=== PATIENT | female | born 1970 | race Caucasian/White ===

== ENCOUNTER 2020-08-04 15:32 | Emergency (ER) | payer OTHER, SELFPAY ==
--- NOTE | ~2020-08-04 | XR_ITS ---
EXAMINATION: XR foot LT min 3V DATE: 08/04/2020 15:54 INDICATION: Left foot injury and pain. TECHNIQUE: 4 views of left foot were obtained. COMPARISON: None. FINDINGS: Bone alignment is normal. There are changes of bunionectomy. No acute fracture. There is mi ld osteoarthritis of first metatarsophalangeal joint and some of the interphalangeal joints. IMPRESSION: 1. Mild polyarticular osteoarthritis. Reviewed, dictated and finalized at location A. [facility]
--- NOTE | 2020-08-04 15:39 | ED.LOWEXIN ---
HPI - Extremity Injury (Lower) General Chief Complaint: Extremity Injury, Lower Stated Complaint: lt foot injury Source: patient and RN notes reviewed Mode of arrival: ambulatory Limitations: no limitations History of Present Illness HPI Narrative: 42-year-old female presents with concern for left foot pain. Reports this morning at the gym she felt she stepped on it wrong causing pain. Reports she went through her day, got a pedicure, pain persisted. She denies any known trauma, direct injury. Denies swelling, bruising. Reports dorsal foot pain with flexion of the foot and movement of the toes. MD complaint: foot injury Injury: Left: foot Related Data Home Medications Medication Instructions Recorded Confirmed estradiol 1 mg tablet 1 mg PO DAILY 08/19/19 05/12/20 estradiol-norethindrone acet 0.5 1 tablet PO DAILY 08/19/19 05/12/20 mg-0.1 mg tablet abacavir 600 mg-dolutegravir 50 1 tablet PO DAILY 05/12/20 mg-lamivudine 300 mg tablet Allergies Allergy/AdvReac Type Severity Reaction Status Date / Time Penicillins Allergy Unknown Verified 08/23/19 17:20 Review of Systems Review of Systems: Narrative: CONSTITUTIONAL: Denies malaise, chills, sweats, or fever. SKIN: Denies laceration, abrasions, redness, swelling, warmth MUSCULOSKELETAL: Reports left foot pain NEUROLOGIC: Denies numbness, weakness All systems reviewed & are unremarkable except as noted in HPI and below PMFSH Past Medical History Medical History (Updated 08/04/20 @ 16:16 by Andie Latif NP) HIV (human immunodeficiency virus infection) Insomnia Migraine Surgical History Surgical History (Updated 05/12/20 @ 11:08 by Nury Murphy CMA) History of nasal surgery Family History Family History (System 08/23/19 @ 17:20 by Risa Chester) Father Family history of prostate cancer Cerebrovascular accident Malignant neoplasm of prostate Grandparent Malignant neoplasm of prostate Cerebrovascular accident Grandparent Rheumatic fever Heart attack Grandparent Malignant neoplasm of prostate Heart attack Sibling Malignant neoplasm of prostate Sibling Heart attack Father Cerebrovascular accident Malignant neoplasm of prostate Grandparent Cerebrovascular accident Malignant neoplasm of prostate Family history of rheumatic fever Sibling Malignant neoplasm of prostate Social History Social History (System 08/23/19 @ 17:20 by Risa Chester) Smoking status: Never smoker Alcohol intake: never Comments At time of signature, agree with nursing past medical, surgical, social and family history. There is no relevant family history pertinent to the presenting complaint Exam Narrative: Exam Narrative: GENERAL: Well-appearing, well-nourished, and in no acute distress. HEAD: Normocephalic, atraumatic. EYES: PERRLA, conjunctivae clear NECK: Supple. CHEST: Speaks in full sentences. No respiratory distress. HEART: Regular rate and rhythm. Normal and equal peripheral pulses. EXTREMITIES: Left foot and digits have normal strength and sensation, normal range of motion. No edema or ecchymosis. 5/5 strength with ankle and digit flexion and extension. Normal sensation with sensitivity to light touch and pain. Lateral tenderness. No open wounds, no skin tenting, no devitalized tissue or atrophy, no trophic changes, no obvious deformity, alignment normal, nearby joints and structures intact. Distal pulses palpable and equal bilaterally, skin warm, dry, pink. Capillary refill less than 3 seconds. SKIN: Warm, dry, no rash. NEURO: Alert and oriented x3. PSYCH: Normal mood and affect Course Course Emergency Course: Patient is aware of diagnosis, understands and agrees to treatment plan. Anticipatory guidance given. Patient agrees to follow-up as directed and is aware of reasons to seek care at the emergency department. Portions of this record may have been created with voice recognition software Vital Signs Vit
[2020-08-04 15:48] VITALS: BP 144/83; PULSE 93; RESP 16; TEMP 37.1; O2SAT 100
== END 2020-08-04 16:24 | disposition home or self-care (01) ==
PROVIDERS: Emergency Provider Nurse Practitioner; PCP Internal Medicine
DX: M79.672 Pain in left foot (principal); Z21 Asymptomatic human immunodeficiency virus [HIV] infection status
CPT/HCPCS: 73630; 99213; G0463

== ENCOUNTER 2022-02-22 00:22 | Day surgery (SDC) | payer OTHER, SELFPAY ==
[2022-02-13 14:34] VITALS: BMI 21.3
--- NOTE | 2022-02-21 13:14 | PM.HPGS ---
History of Present Illness History of Present Illness Consent: Risks, benefits, and alternatives have been discussed and questions answered. Patient agrees to proceed with procedure. Chief complaint: neoplasm screening Narrative: Ela Carrillo is a 52 year old female referred for colon cancer screening. Review of Systems Review of Systems: All systems reviewed & are unremarkable except as noted in HPI and below PMFSH Past Medical History Medical History HIV (human immunodeficiency virus infection) Insomnia Migraine Surgical History Surgical History History of nasal surgery Family History Family History Father Family history of prostate cancer Cerebrovascular accident Malignant neoplasm of prostate Grandparent Malignant neoplasm of prostate Cerebrovascular accident Grandparent Rheumatic fever Heart attack Grandparent Malignant neoplasm of prostate Heart attack Sibling Malignant neoplasm of prostate Sibling Heart attack Father Cerebrovascular accident Malignant neoplasm of prostate Grandparent Cerebrovascular accident Malignant neoplasm of prostate Family history of rheumatic fever Sibling Malignant neoplasm of prostate Social History Social History Smoking status: Never smoker Alcohol intake: never Substance use: never Substance use type: does not use Living arrangements: with family Spiritual care concerns: No Meds Home Medications and Allergies Home Medications Medication Instructions Recorded Confirmed Type estradiol 1 mg tablet 1 mg PO DAILY 08/19/19 02/22/22 History abacavir 600 mg-dolutegravir 50 1 tablet PO DAILY 05/12/20 02/22/22 History mg-lamivudine 300 mg tablet (Triumeq) zolpidem 5 mg tablet 5 mg PO .qhs #30 tabs 11/14/21 02/22/22 Rx norethindrone 1 mg-ethinyl 1 tablet PO DAILY 02/13/22 02/22/22 History estradiol 35 mcg tablet (Pirmella) rizatriptan 10 mg tablet See Rx Instructions .Route 02/21/22 02/22/22 Rx .COMPLEX #18 tabs Allergies Allergy/AdvReac Type Severity Reaction Status Date / Time Penicillins Allergy Mild Rash Verified 02/22/22 07:40 Exam Resp: Auscultation: clear to auscultation bilaterally Cardio: Rate: regular rate Rhythm: regular rhythm GI: GI Palp: Yes Soft to palpation and No Tenderness to palpation present (GI) Assessment and Plan Assessment and plan (1) Screening for colon cancer: Code(s): Z12.11 - Encounter for screening for malignant neoplasm of colon Status: Acute Assessment and Plan: Colonoscopy with possible biopsy or polypectomy or cautery or injection of substances.
--- NOTE | 2022-02-22 07:41 | SUR.PREOP ---
DR URENA DISCONTINUED U-PREG TEST AFTER SPEAKING WITH PT
[2022-02-22 07:42] VITALS: BP 116/82; PULSE 100; RESP 16; TEMP 36.6; O2SAT 99
[2022-02-22] MEDS: LACTATED RINGERS 1,000 ML 150 ML IV CONT (07:55)
--- NOTE | 2022-02-22 08:02 | WPDANESEPPF ---
Anes - Initial Pre Proc Eval Procedure: Operation Date: 02/22/22 08:30 Proposed Procedures p Screening Colonoscopy - Eliud Bardales MD Date/Time: 02/22/22 08:02 Surgeon: Eliud Bardales MD Pre Op Diagnosis: neoplasm screening Patient Data Age: 52 Gender: F Height: 1.63 m Weight: 52.3 kg Last Vital Signs Temp 97.9 F 02/22/22 07:42 Pulse 100 02/22/22 07:42 Resp 16 02/22/22 07:42 BP 116/82 02/22/22 07:42 Pulse Ox 99 02/22/22 07:42 O2 Del Method Room Air 02/22/22 07:42 Allergies Allergy/AdvReac Type Severity Reaction Status Date / Time Penicillins Allergy Mild Rash Verified 02/22/22 07:40 Home Medications Medication Instructions Recorded Confirmed Type estradiol 1 mg tablet 1 mg PO DAILY 08/19/19 02/22/22 History abacavir 600 mg-dolutegravir 50 1 tablet PO DAILY 05/12/20 02/22/22 History mg-lamivudine 300 mg tablet (Triumeq) zolpidem 5 mg tablet 5 mg PO .qhs #30 tabs 11/14/21 02/22/22 Rx norethindrone 1 mg-ethinyl 1 tablet PO DAILY 02/13/22 02/22/22 History estradiol 35 mcg tablet (Pirmella) rizatriptan 10 mg tablet See Rx Instructions .Route 02/21/22 02/22/22 Rx .COMPLEX #18 tabs Patient hx anesthesia problems: none Family hx anesthesia problems: none Results Review: All pre-operative results and documents have been reviewed as part of the pre-operative evaluation. [facility] Past Medical History Medical History HIV (human immunodeficiency virus infection) Insomnia Migraine Surgical History Surgical History History of nasal surgery Family History Family History Father Family history of prostate cancer Cerebrovascular accident Malignant neoplasm of prostate Grandparent Malignant neoplasm of prostate Cerebrovascular accident Grandparent Rheumatic fever Heart attack Grandparent Malignant neoplasm of prostate Heart attack Sibling Malignant neoplasm of prostate Sibling Heart attack Father Cerebrovascular accident Malignant neoplasm of prostate Grandparent Cerebrovascular accident Malignant neoplasm of prostate Family history of rheumatic fever Sibling Malignant neoplasm of prostate Social History Social History Smoking status: Never smoker Alcohol intake: never Substance use: never Substance use type: does not use Living arrangements: with family Spiritual care concerns: No Anes - Eval Final PreProcedure Day of Procedure 02/22/22 08:02 Patient weight: normal Heart: regular rate and rhythm Lungs: clear to auscultation Airway: Mallampati scale class II Neurological: alert and oriented Last oral intake: >/= 8 hours ASA classification: II Emergent: no Anesthetic plan: proceed Anesthesia type and monitoring: general GIVS and standard monitoring Results Review: All pre-operative results and documents have been reviewed as part of the pre-operative evaluation. Informed Consent: The patient's anesthetic plan and its attendant risks and benefits were discussed with the patient/family/POA. Questions were solicited and answers provided to the satisfaction of the patient/family/POA.
[2022-02-22 08:39] VITALS: BP 88/57; PULSE 71; RESP 18; O2SAT 99
[2022-02-22 08:49] VITALS: BP 109/75; PULSE 80; RESP 24; O2SAT 100
[2022-02-22 08:59] VITALS: BP 129/84; PULSE 68; RESP 18; O2SAT 100
== END 2022-02-22 09:08 | disposition home or self-care (01) ==
PROVIDERS: PCP Internal Medicine; Visit Provider Internal Medicine Gastroenterology
PROC: 0DJD8ZZ Inspection of Lower Intestinal Tract, Via Natural or Artificial Opening Endoscopic (ICD-10-PCS; CPT 45378; principal; 2022-02-22 08:30)
DX: Z12.11 Encounter for screening for malignant neoplasm of colon (principal); K64.8 Other hemorrhoids; Z21 Asymptomatic human immunodeficiency virus [HIV] infection status; Z79.899 Other long term (current) drug therapy
CPT/HCPCS: 45378; J2704; J7120

== ENCOUNTER 2024-05-20 12:33 | Outpatient (CLI) | payer OTHER, SELFPAY ==
[2024-05-20 14:01] LABS: Basophils Absolute Auto 0.1 K/mm3 (0.0-0.1); Basophils Percent Auto 0.7 % (0.2-1.2); Eosinophils Absolute Auto 0.1 K/mm3 (0-0.3); Eosinophils Percent Auto 1.2 % (0-4.4); Hematocrit 44.2 % (37.0-47.0); Hemoglobin 14.6 g/dL (12.0-15.0); Immature Granulocyte Absolute 0.02 K/mm3 (0.00-0.031); Immature Granulocyte Percent A 0.3 % (0-0.5); Lymphocytes Percent Auto 30.3 % (18.3-44.2); Mean Corpuscular Hemoglobin 32.1 pg (26-34); Mean Corpuscular Volume 97.1 fl (80-100); Mean Platelet Volume 10.2 fl (7.4-10.4); Monocytes Absolute Auto 0.5 K/mm3 (0.1-0.6); Monocytes Percent Auto 6.6 % (2.6-8.5); Neutrophils Absolute Auto 4.4 K/mm3 (1.3-6.7); Neutrophils Percent Auto 60.9 % (45.5-73.1); Platelet Count Result 237 k/mm3 (150-375); Red Blood Count 4.55 M/mm3 (4.2-5.4); White Blood Count 7.3 K/mm3 (4.5-10.0)
[2024-05-20 14:15] LABS: Alanine Aminotransferase 40 U/L (6-35); Albumin Level 4.4 g/dL (3.5-5.1); Alkaline Phosphatase 65 U/L (38-126); Anion Gap 7 mmol/L (4-12); Aspartate Amino Transferase 46 U/L (14-36); Bilirubin,Total 0.4 mg/dL (0.2-1.3); Blood Urea Nitrogen 16 mg/dL (7-17); Calcium 9.5 mg/dL (8.4-10.2); Carbon Dioxide 29 mmol/L (22-30); Chloride 105 mmol/L (98-107); Cholesterol 182 mg/dL (0-200); Estimated Glomerular Filt Rate > 60; Glucose 83 mg/dL (65-110); HDL Direct 72 mg/dL; Potassium 4.2 mmol/L (3.4-5.0); Sodium 141 mmol/L (137-145); Triglycerides 84 mg/dL (<150)
[2024-05-20 14:27] LABS: LDL Cholesterol Direct 78 mg/dL
[2024-05-20 18:39] LABS: Vitamin D 25 Hydroxy 54.1 ng/mL
[2024-05-21 11:24] LABS: FSH 25.7 mIU/mL; LH 14.6 mIU/mL; Progesterone <0.5 ng/mL
== END 2024-05-20 12:34 | disposition home or self-care (01) ==
LOC: ANHGOSHLAB 12:36
PROVIDERS: PCP Internal Medicine; Visit Provider Nurse Practitioner
DX: E34.9 Endocrine disorder, unspecified (principal); E55.9 Vitamin D deficiency, unspecified; Z13.220 Encounter for screening for lipoid disorders; Z13.29 Encounter for screening for other suspected endocrine disorder; N95.1 Menopausal and female climacteric states
CPT/HCPCS: 36415; 80053; 80061; 82306; 82670; 83001; 83002; 84144; 85025